=== PATIENT | female | born 1985 | race African-American/Black ===

== ENCOUNTER 2016-11-11 05:39 | Emergency (ER) | payer OTHER ==
--- NOTE | 2016-11-11 05:50 | PDOC ---
History of Present Illness - General History Source: Patient Exam Limitations: No Limitations - History of Present Illness Initial Comments: 11/11/16 06:45 The patient is a 31-year-old female, with no significant past medical history, who presents to the emergency department complaining of cold-like symptoms that began a week ago. The patient states shes had a sore throat and cough with yellow sputum, but denies fever or chills. She reports she has difficulty swallowing, secondary to sore throat, but denies any changes in appetite. She states she is unable to sleep at night due to congestion.. The patient denies fever, chills, cough, headache, and dizziness. 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 The patient denies any recent travel. She denies nausea, vomiting, diarrhea, and constipation. She denies chest pain, diaphoresis, palpitations, and shortness of breath. Allergies: None reported. Past Surgical History: None reported. Social History: Non-smoker. Denies alcohol or drug use. <Veronica Smith - Last Filed: 11/11/16 06:45> <Leslie Mahan - Last Filed: 11/12/16 01:50> - General Stated Complaint: CONGESTION AND THROAT PAIN Time Seen by Provider: 11/11/16 05:50 Past History <Veronica mSith - Last Filed: 11/11/16 06:45> <Leslie Mahan - Last Filed: 11/12/16 01:50> - Past Medical History Allergies/Adverse Reactions: Allergies Allergy/AdvReac Type Severity Reaction Status Date / Time No Known Allergies Allergy Verified 11/11/16 05:57 Home Medications: Ambulatory Orders Azithromycin [Zithromax -] 250 mg PO DAILY #4 tablet 11/11/16 NK [No Known Home Medication] 11/11/16 Pseudoephedrine HCl [Sudafed] 2 tab PO BID #20 tablet 11/11/16 Review of Systems - Review of Systems Able to Perform ROS?: Yes Comments:: 11/11/16 06:45 GENERAL/CONSTITUTIONAL: No fever or chills. No weakness. HEAD, EYES, EARS, NOSE AND THROAT: No change in vision. No ear pain or discharge. No sore throat. CARDIOVASCULAR: No chest pain or shortness of breath. RESPIRATORY: +Cough. +Sore throat. No wheezing, or hemoptysis. GASTROINTESTINAL: No nausea, vomiting, diarrhea or constipation. GENITOURINARY: No dysuria, frequency, or change in urination. MUSCULOSKELETAL: +Pain in medial fingers. No joint or muscle swelling. No neck or back pain. SKIN: No rash NEUROLOGIC: No headache, vertigo, loss of consciousness, or change in strength/ sensation. ENDOCRINE: No increased thirst. No abnormal weight change. HEMATOLOGIC/LYMPHATIC: No anemia, easy bleeding, or history of blood clots. ALLERGIC/IMMUNOLOGIC: No hives or skin allergy. <Veronica Smith - Last Filed: 11/11/16 06:45> *Physical Exam - Vital Signs Last Vital Signs Temp Pulse Resp BP Pulse Ox 97.6 F 90 20 129/79 100 11/11/16 05:57 11/11/16 05:57 11/11/16 05:57 11/11/16 05:57 11/11/16 05:57 - Physical Exam Comments: 11/11/16 06:46 GENERAL: The patient is awake, alert, and fully oriented, in no acute distress. HEAD: Normal with no signs of trauma. EYES: Pupils equal, round and reactive to light, extraoccular movements intact, sclera anticteric, conjunctiva clear with no pallor. ENT: Ears normal, nares patent, oropharynx clear without exudates. Moist mucous membranes. NECK: Normal range of motion, supple without lymphadenopathy, JVD, or masses. LUNGS: Breath sounds equal, clear to auscultation bilaterally. No wheeze/ crackles. HEART: Regular rate and rhythm, normal S1 and S2 without murmur or rub. ABDOMEN: Soft/nontender/nondistended. BS wnl. No guarding or rebound. No palpable masses. No hepatosplenomegaly. EXTREMITIES: Normal range of motion, no edema. No clubbing or cyanosis. No cords, erythema, or tenderness. NEUROLOGICAL: Cranial nerves II through XII grossly intact. Normal speech, normal gait. PSYCH: Normal mood, normal affect. SKIN: Warm, Dry, normal turgor, no rashes or lesions noted. <Veronica Simth - Last Filed: 11/11/16 06:45> ED Treatment Course - Medications Given in the ED: ED Medications Discontinued Medications Generic Name Dose Route Start Last Admin Trade Name Jaison PRN Reason Stop Dose Admin Azithromycin 500 mg 11/11/16 06:33 11/11/16 06:38 Zithromax - PO 11/11/16 06:34 500 mg ONCE ONE Administration <Veronica Smith - Last Filed: 11/11/16 06:45> Medical Decision Making - Medical Decision Making 11/12/16 01:49 Pt comes with a cough that has been ongoing for over a week and now she has a green productive cough. She also has sore throat. Pt will be treated for an atypical pneumonia. She will be sent home with a z gabriel. She has a normal throat culture. <Leslie Mahan - Last Filed: 11/12/16 01:50> *DC/Admit/Observation/Transfer - Attestations Scribe Attestion: 11/11/16 06:46 Documentation prepared by Veronica Smith, acting as medical underwriter for Leslie Mahan MD. <Veronica Smith - Last Filed: 11/11/16 06:45> - Discharge Dispostion Admit: No <Leslie Mahan - Last Filed: 11/12/16 01:50> Diagnosis at time of Disposition: Bronchitis - Discharge Dispostion Disposition: HOME Condition at time of disposition: Good - Prescriptions Prescriptions: Pseudoephedrine HCl [Sudafed] 2 tab PO BID #20 tablet Azithromycin [Zithromax -] 250 mg PO DAILY #4 tablet - Referrals Referrals: STAFF,NOT ON [Primary Care Provider] - - Patient Instructions Printed Discharge Instructions: DI for Acute Bronchitis, How to Avoid a Cold or Flu - Post Discharge Activity Work/School Note: Back to Work
[2016-11-11 06:17] VITALS: BP 129/79; PULSE 90; TEMP 97.6; BMI 30.2
[2016-11-11] MEDS ORDERED: AZITHROMYCIN 250 MG TABLET (FP) PO ONE (06:33)
[2016-11-11] MEDS ORDERED: AZITHROMYCIN 250 MG TABLET (FP) ONE (06:35)
== END 2016-11-11 06:48 | disposition home or self-care (01) ==
LOC: JER 05:39
DX: J40 Bronchitis, not specified as acute or chronic (principal)
CPT/HCPCS: 87070; 87430; 99281-25